=== PATIENT | male | born 1955 | race Caucasian/White ===

== ENCOUNTER 2024-09-29 13:15 | Emergency (ER) | payer BC ==
[2024-09-29] MEDS ORDERED: DIPHTH,PERTUSS(ACELL),TET 0.5 ML DISP.SYRIN IM ONE (13:31)
[2024-09-29] MEDS: DIPHTH,PERTUSS(ACELL),TET 0.5 ML DISP.SYRIN IM ONE (13:37)
[2024-09-29 13:59] VITALS: BP 137/76; PULSE 67; RESP 20; TEMP 98.4; BMI 23.7
[2024-09-29] MEDS ORDERED: ACETAMINOPHEN 650 MG/20.3 ML ORAL SOLUTION (CUPS) ONE (21:25)
[2024-10-09] MEDS ORDERED: AMOX TR/POT CLAV 875MG/125MG TABLETS (FP) ONE (15:07)
== END 2024-09-29 13:42 | disposition home or self-care (01) ==
LOC: FER 13:15
PROC: 3E0234Z Introduction of Serum, Toxoid and Vaccine into Muscle, Percutaneous Approach (ICD-10-PCS; principal; 2024-09-29)
DX: S80.811A Abrasion, right lower leg, initial encounter (principal); Z23 Encounter for immunization; W26.8XXA Contact with other sharp object(s), not elsewhere classified, initial encounter; Y92.009 Unspecified place in unspecified non-institutional (private) residence as the place of occurrence of the external cause
CPT/HCPCS: 90471; 90715; 99284-25